=== PATIENT | male | born 1980 | race Caucasian/White ===

== ENCOUNTER 2019-12-28 17:57 | Outpatient (CLI) | payer OTHER, SELFPAY ==
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
== END 2019-12-28 17:58 | disposition home or self-care (01) ==
PROVIDERS: PCP Family Medicine; Visit Provider Family Medicine
DX: T14.90XA Injury, unspecified, initial encounter (principal)
CPT/HCPCS: 73120

== ENCOUNTER 2022-05-13 17:10 | Emergency (ER) | payer OTHER, SELFPAY ==
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
[2022-05-13 17:50] VITALS: BP 131/73; PULSE 68; RESP 16; TEMP 36.2; O2SAT 100
[2022-05-13 21:27] VITALS: BP 137/66; PULSE 70; RESP 19; TEMP 36.9; O2SAT 100
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
[2022-05-13] MEDS: TETANUS,DIPHTHERIA,AC PERTUSSIS ADULT (0.5 ML) BOOSTRIX IM (22:26)
[2022-05-13 22:59] VITALS: BP 127/78; PULSE 62; RESP 18; O2SAT 100
[2022-05-13] MEDS: KETOROLAC (*BKC) 60 MG/2 ML VIAL IM (23:04)
== END 2022-05-13 23:11 | disposition home or self-care (01) ==
PROVIDERS: Emergency Provider Physician Assistant; PCP Family Medicine
DX: S01.81XA Laceration without foreign body of other part of head, initial encounter (principal); S40.012A Contusion of left shoulder, initial encounter; S60.221A Contusion of right hand, initial encounter; Z23 Encounter for immunization; V18.4XXA Pedal cycle driver injured in noncollision transport accident in traffic accident, initial encounter; Y93.55 Activity, bike riding
CPT/HCPCS: 12011; 70450; 70486; 72125; 90471; 90715; 96372; 99284; J1885; L0140